=== PATIENT | female | born 1990 ===

== ENCOUNTER 2016-11-12 14:59 | Emergency (ER) | payer MEDICAID ==
[2016-11-12 15:17] VITALS: BMI 32.3
--- NOTE | 2016-11-12 16:00 | ED PDOC ---
HPI: Eye Injury/Pain Time Seen by Provider: 11/12/16 15:32 Chief Complaint (Nursing): Eye Problem Chief Complaint (Provider): Eye Problem History Per: Patient History/Exam Limitations: no limitations Onset/Duration Of Symptoms: Days (x2 ) Current Symptoms Are (Timing): Still Present Wears Contact Lens?: No Associated Symptoms: Pain, Swelling Additional Complaint(s): Dyana Ryan is a 26 year old female, with no past medical history, who presents to the emergency department complaining of pain and swelling in her left upper eyelid onset for 2 days. Patient states the pain radiates to her left ear. She denies any fever and discharge. Patient reports her daughter had pink eye recently and that she experienced similar symptoms. PMD: None provided Past Medical History Reviewed: Historical Data, Nursing Documentation, Vital Signs Vital Signs: Last Vital Signs Temp 98.3 F 11/12/16 15:17 Pulse 82 11/12/16 15:17 Resp 18 11/12/16 15:17 BP 119/73 11/12/16 15:17 Pulse Ox 99 11/12/16 15:17 - Medical History PMH: No Chronic Diseases - Surgical History Surgical History: No Surg Hx - Family History Family History: States: Unknown Family Hx - Social History Current smoker - smoking cessation education provided: No Alcohol: None Drugs: Denies - Home Medications Home Medications: Ambulatory Orders Medication Instructions Recorded Clindamycin [Cleocin] 300 mg PO QID #40 cap 11/12/16 Tobramycin/Dexamethasone [Tobradex 2 / .ROUTE Q6H #1 b 11/12/16 [facility] Drops] - Allergies Allergies/Adverse Reactions: Allergies Allergy/AdvReac Type Severity Reaction Status Date / Time No Known Allergies Allergy Verified 11/12/16 15:16 Review of Systems ROS Statement: Except As Marked, All Systems Reviewed And Found Negative Constitutional: Negative for: Fever Eyes: Positive for: Pain (radiates to left ear), Eyelid Inflammation (left upper eyelid swelling), Redness ENT: Positive for: Ear Pain Physical Exam - Reviewed Nursing Documentation Reviewed: Yes Vital Signs Reviewed: Yes - Physical Exam Appears: Positive for: Well, Non-toxic, No Acute Distress Head Exam: Positive for: ATRAUMATIC, NORMAL INSPECTION, NORMOCEPHALIC Skin: Positive for: Normal Color, Warm, Dry Eye Exam: Positive for: Periorbital swelling (left periorbital edema), Other ( Significant erythema). Negative for: Normal appearance, EOMI ENT: Positive for: Normal ENT Inspection Neck: Positive for: Normal, Painless ROM Neurologic/Psych: Positive for: Alert, Oriented - Laboratory Results Result Diagrams: 11/12/16 16:25 11/12/16 16:25 - ECG O2 Sat by Pulse Oximetry: 99 (RA) Pulse Ox Interpretation: Normal Medical Decision Making Medical Decision Making: Initial Impression: Left periorbital swelling to rule out orbital cellulitis Initial Plan: --Orbits/ Facials w/ cont [ct] --Comp Metabolic Panel --Urine --CBC w/ differential --Toradol 15mg IVP --Sodium Chloride IV 1,000 ml at 1,000 mls/hr --Blood culture --Reevaluation Discussed Ct result with Dr. Adair. He would like patient sent home on Topradex and to call his office tomorrow to be seen. Warm compresses 4 x /day. Scribe Attestation: Documented by Milan Stephen, acting as a scribe for Carolyn LANDRY. Provider Scribe Attestation: All medical record entries made by the Scribe were at my direction and personally dictated by me. I have reviewed the chart and agree that the record accurately reflects my personal performance of the history, physical exam, medical decision making, and the department course for this patient. I have also personally directed, reviewed, and agree with the discharge instructions and disposition. Disposition - Clinical Impression Clinical Impression: Periorbital cellulitis, Sty - Patient ED Disposition Is Patient to be Admitted: No Counseled Patient/Family Regarding: Diagnosis, Need For Followup, Rx Given - Disposition Referrals: Seven Adair MD [Staff Provider] - Disposition: Routine/Home Disposition Time: 20:53 Condition: GOOD Additional Instructions: Warm compresses 4x a day. Please call Dr. Adair tomorrow for appointment. Prescriptions: Clindamycin [Cleocin] 300 mg PO QID #40 cap Tobramycin/Dexamethasone [Tobradex St Eye Drops] 2 / .ROUTE Q6H #1 b Instructions: Periorbital Cellulitis in Adults (ED) Print Language: SETSWANA
[2016-11-12] MEDS ORDERED: Sodium Chloride 0.9% 1,000 ML IV STA (16:02)
[2016-11-12 16:57] LABS: BASO # 0.1 K/uL (0.0-0.2); BASO % 0.8 % (0.0-2.0); EOS # 0.2 K/uL (0.0-0.7); EOS % 2.6 % (0.0-4.0); HEMOGLOBIN 14.1 g/dL (12.0-16.0); LYMPH # 1.9 K/uL (1.0-4.3); LYMPH % 23.4 % (20.0-40.0); MEAN CORPUSCULAR HEMOGLOBIN 29.2 pg (27.0-31.0); MEAN CORPUSCULAR HGB CONC 33.2 g/dL (33.0-37.0); MEAN PLATELET VOLUME 9.9 fl (7.2-11.7); MONO % 12.2 % (0.0-10.0); NEUT # 4.9 K/uL (1.8-7.0); RBC 4.83 Mil/uL (3.80-5.20); RED CELL DISTRIBUTION WIDTH 14.4 % (11.5-14.5); WHITE BLOOD COUNT 8.1 K/uL (4.8-10.8)
[2016-11-12 17:01] LABS: ALB/GLOB RATIO 1.1 (1.0-2.1); ALBUMIN 4.1 g/dL (3.5-5.0); ALT/SGPT 39 U/L (9-52); AST/SGOT 28 U/L (14-36); BLOOD UREA NITROGEN 11 mg/dl (7-17); CALCIUM 8.8 mg/dL (8.4-10.2); GFR AFRICAN-AMERICAN > 60; GFR NON-AFRICAN AMERICAN > 60
[2016-11-12] MEDS ORDERED: Sodium Chloride 0.9% 50 ML IV ONE (18:39)
[2016-11-12] MEDS ORDERED: Iohexol 300 100 ML IJ ONE (18:39)
--- NOTE | 2016-11-12 19:44 | CT ---
EXAM: CT Maxillofacial With Intravenous Contrast CLINICAL HISTORY: 26 years old, female; Signs and symptoms; Other: Left periorbital edema; Additional info: Left periorbital edema, erythema, pain TECHNIQUE: Axial computed tomography images of the face with intravenous contrast. This CT exam was performed using one or more of the following dose reduction techniques: automated exposure control, adjustment of the mA and/or kV according to patient size, and/or use of iterative reconstruction technique. Coronal and sagittal reformatted images were created and reviewed. CONTRAST: 80 mL of [id number] administered intravenously. EXAM DATE/TIME: 11/12/2016 4:02 PM COMPARISON: There are no prior studies for comparison. FINDINGS: Brain: No acute abnormalities are seen in visualized portion of the brain. Sinuses: There is no acute sinusitis. Ears and mastoids Middle ears and mastoids are unremarkable Orbits: There is a left periorbital soft tissue swelling and edema. There is edema in the soft tissues of the left eyelid. There is peripheral enhancement. There is a small amount of air in the fluid collection. Left globe is intact. There is no post septal inflammation. Right globe and orbital contents are unremarkable. Tonsils and adenoids: Tonsils and adenoids are unremarkable. Deep facial spaces: Parapharyngeal spaces are symmetric. There are no facial masses. Salivary glands: Parotid and submandibular glands are unremarkable. Airway: Airway is unremarkable Thyroid: Visualized portion of the thyroid is unremarkable. Vascular: Vascular structures are unremarkable. Nodes: There is cervical adenopathy Bony structures:There are no acute osseous abnormalities IMPRESSION: Left pre-septal cellulitis with abscess in the left eyelid; no orbital cellulitis
[2016-11-12] MEDS ORDERED: ceFAZolin 1 GM in Sodium Chloride 0.9% 100 ML IVPB ONE (20:03)
[2016-11-12 22:14] VITALS: BP 126/79; PULSE 79; RESP 16; TEMP 98.6; O2SAT 100
== END 2016-11-12 22:12 | disposition home or self-care (01) ==
LOC: H.ER 14:59
DX: L03.213 Periorbital cellulitis (principal); H92.09 Otalgia, unspecified ear